=== PATIENT | female | born 1995 | race Two or more races ===

== ENCOUNTER 2024-03-02 22:54 | Inpatient (IN) | payer OTHER ==
[~2024-03-02] VITALS: Ht 165.1 cm; Wt 88.0 kg
[2024-03-02 22:45] VITALS: BP 134/85
[2024-03-02] MEDS ORDERED: OXYTOCIN 500 ML IV SCH (23:00)
[2024-03-02] MEDS ORDERED: RINGERS SOLUTION,LACTATED 1,000 ML IV SCH (23:00)
[2024-03-02] MEDS ORDERED: PRENATAL TABLE1 EAC1 PO (23:13)
[2024-03-02 23:36] LABS: HEMATOCRIT 37.5 % (36.0-45.00); HEMOGLOBIN 12.5 g/dL (12.0-15.00); MEAN CELL VOLUME 89.5 fL (80.00-100.00); MEAN CORPUSCULAR HEMOGLOBIN 29.9 pg (27.00-32.0); MEAN CORPUSCULAR HGB CONC 33.4 g/dl (32.0-36.0); PLATELET COUNT 143 K/uL (150-450); RED BLOOD COUNT 4.19 M/uL (4.00-6.00); RED CELL DISTRIBUTION WIDTH 13.7 % (11.5-14.5)
[2024-03-02 23:45] VITALS: BP 133/66
[2024-03-03 00:05] LABS: INR 0.99; PARTIAL THROMBOPLASTIN TIME 26.2 SECONDS (22.0-34.0); PROTHROMBIN TIME 10.8 SECONDS (9.0-11.5)
[2024-03-03 00:10] LABS: ALBUMIN 2.6 gm/dL (3.4-5.0); BILIRUBIN TOTAL 0.24 mg/dL (0.3-1.2); CALCIUM 9.1 mg/dL (8.5-10.1); CREATININE SERUM 0.63 mg/dL (0.55-1.02); GFR 110.22; GLOBULINA 3.5 G/DL (2.4-3.5); POTASSIUM 3.95 mEq/L (3.5-5.1); TOTAL PROTEIN 6.1 gm/dL (6.4-8.2)
[2024-03-03] MEDS ORDERED: NOVOLIN R100 UNIT/1 (00:10)
[2024-03-03] MEDS ORDERED: IBUprofen 600 MG TABLET PO SCH (02:00)
[2024-03-03] MEDS ORDERED: OXYTOCIN 1,000 ML IV SCH (04:45)
[2024-03-03] MEDS ORDERED: ERYTHROMYCIN BASE OPHT 1GM EACH TUBE OP ONE (04:45)
[2024-03-03] MEDS ORDERED: CHLORHEXIDINE GLUCONATE 120 ML BOTTLE TOP ONE (04:45)
[2024-03-03 05:07] VITALS: BP 115/72
[2024-03-03 10:37] LABS: HEMATOCRIT 35.1 % (36.0-45.00); HEMOGLOBIN 11.6 g/dL (12.0-15.00); MEAN CELL VOLUME 89.9 fL (80.00-100.00); MEAN CORPUSCULAR HEMOGLOBIN 29.7 pg (27.00-32.0); PLATELET COUNT 141 K/uL (150-450); RED CELL DISTRIBUTION WIDTH 13.8 % (11.5-14.5)
[2024-03-03 13:24] VITALS: BP 113/59
[2024-03-03 16:00] VITALS: BP 109/71
[2024-03-04 01:07] VITALS: BP 110/74
[2024-03-04 08:27] VITALS: BP 113/75
[2024-03-04 13:41] VITALS: BP 127/70
[2024-03-04 16:00] VITALS: BP 114/75
[2024-03-04 18:47] LABS: URINE APPEARANCE Clear; URINE BILIRRUBIN Negative (NEGATIVE); URINE BLOOD Large; URINE COLOR Orange; URINE GLUCOSE Negative (NEGATIVE); URINE KETONE Negative (NEGATIVE); URINE LEUKOCYTE Moderate; URINE NITRATE Negative; URINE PROTEIN Trace (NEGATIVE); URINE UROBILINOGEN 0.2 E.U./dl
[2024-03-04 18:50] LABS: URINE BACTERIA 61.7 uL (0.0-1933); URINE EPITHELIAL CELLS 58.2 uL (0.0-38.8); URINE RBC 3064.8 uL (0.0-20.8)
[2024-03-04 20:00] VITALS: BP 107/66
[2024-03-05 01:10] VITALS: BP 106/62
[2024-03-05 05:07] VITALS: BP 113/72
[2024-03-05 09:00] VITALS: BP 124/82
== END 2024-03-05 18:15 | disposition home or self-care (01) | DRG 805 ==
LOC: OB/GYN 22:54 → EDSEX 22:54 → EDBD 22:54 → LDR 22:54 → OB/GYN 03-03 02:27
PROVIDERS: Obstetrics & Gynecology; ADMIT Specialist; ATTEND Specialist
PROC: 4A1HXCZ Monitoring of Products of Conception, Cardiac Rate, External Approach (ICD-10-PCS; 2024-03-02)
PROC: 10E0XZZ Delivery of Products of Conception, External Approach (ICD-10-PCS; principal; 2024-03-03)
PROC: 0UQMXZZ Repair Vulva, External Approach (ICD-10-PCS; 2024-03-03)
DX: O70.0 First degree perineal laceration during delivery (principal); O60.14X0 Preterm labor third trimester with preterm delivery third trimester, not applicable or unspecified; Z37.0 Single live birth; Z3A.36 36 weeks gestation of pregnancy; Z20.822 Contact with and (suspected) exposure to COVID-19